=== PATIENT | male | born 1965 | race Caucasian/White ===

== ENCOUNTER 2025-01-04 11:09 | Emergency (ER) | payer SELFPAY ==
--- OUTSIDE RECORDS SUMMARY | 2024-12-23 13:00 | XMS_ITS | Encounter Summary ---
Author Organization [facility] tem Address [facility] [place]-[id number] [address] [place] [address] Care Team Providers Care Cost And Risk Analysis Manager Name Role Phone Miki Maradiaga COAL CHEMIST-REGULATORY AFFAIRS STRATEGY SPECIALIST Primary Care Provider + Reason for Visit * Reason Comments Diabetes A1C Gout Flare Up Intermittently; Star andres several weeks ago Encounter Details Date Type Department Care Team (Latest Contact Info) Description 12/23/2024 1:00 PM EDT Office Visit [facility] Internal Medicine - Family Medicine [address] [place] [address] Miki Maradiaga, COAL CHEMIST-REGULATORY AFFAIRS STRATEGY SPECIALIST [address], [address] [place] [address] Essential hypertension (Primary Dx); Prediabetes; Acute idiopathic gout involving toe of left foot; ADD (attention deficit disorder) without hyperactivity Social History Tobacco Use Types Packs/Day Years Used Date Smoking Tobacco: Never Smokeless Tobacco: Never Alcohol Use Standard Drinks/Week Comments Not Currently 0 (1 standard drink = 0.6 oz pur e alcohol) quit 6 yrs ago Social Connection and Isolation Panel [NHANES] A nswer Date Recorded In a typical week, how many times do you talk on the phone with family, friends, or neighbors? Once a week 01/02/2022 How often do you get togethe r with friends or relatives? Once a week 01/02/2022 How often do you attend christian or restorationism serv ices? Never 01/02/2022 Do you belong to any clubs o r organizations such as christian groups, unions, fraternal or athletic groups, or school groups? Patient declined 01/02/2022 How often do you attend meet ings of the clubs or organizations you belong to? Never 01/02/2022 Are you , , di vorced, , never , or living with a partner? 01/02/2022 AUDIT-C Answer Date Recorded Q1: How often do you have a drink containing alc ohol? Never 01/02/2022 Q2: How many drinks containi ng alcohol do you have on a typical day when you are drinking? Patient declined 01/02/2022 Q3: How often do you have si x or more drinks on one occasion? Never 01/02/2022 Overall Financial Resource Strain (CARDIA) Answe r Date Recorded How hard is it for you to pa y for the very basics like food, housing, medical care, and heating? Not very hard 08/12/2024 PHQ-2 Answer Date Recorded Total Score 0 12/23/2024 [facility] Questionnaire Answer Date Recorded Do you feel stress - tense, restless, nervous, or anxious, or unable to sleep at night because your mind is troubled all the time - these days? To some extent 01/02/2022 Exercise Vital Sign Answer Date Recorde d On average, how many days pe r week do you engage in moderate to strenuous exercise (like a brisk walk)? Patient declined On average, how many minutes do you engage in exercise at this level? Patient declined 01/02/2022 PRAPARE - Transportation Answer Date Re corded In the past 12 months, has l ack of transportation kept you from medical appointments or from getting medications? No 10/2024 In the past 12 months, has l ack of transportation kept you from meetings, work, or from getting things needed for daily living? No 08/12/2024 Housing Instability Answer Date Recorde d Are you worried or concerned that in the next two months you may not have stable housing that you own, rent or stay in as a part of a household? No 08/12/2024 Childcare Answer Date Recorded Do problems getting child ca re make it difficult for you to work or study? No 01/02/2022 Employment Answer Date Recorded Do you need help finding a [facility] career center and/or a training program? No 01/02/2022 Hunger Screening Answer Date Recorded Within the past 12 months we worried whether our food would run out before we got money to buy more. Never True 12/23/2024 Within the past 12 months th e food we bought just didn't last and we didn't have money to get more. Never True 12/23/2024 Purpose - Life Answer Date Recorded I have a purpose and direction in my life. Somew hat Agree 01/02/2022 Education Answer Date Recorded What is the highest level of school you have completed or the highest degree you have received? Bachelor's degree (e.g., BA, AB, BS) 01/02/2022 Sex and Gender Information Value Date Recorded Sex Assigned at Not on file Legal Sex Male 8:44 AM EDT Gender Identity Not on file Sexual Orientation Not on file documented as of this encounter Last Filed Vital Signs Vital Sign Reading Time Taken Comments Blood Pressure 120/78 12/23/2024 1:00 PM EDT Pulse 63 12/23/2024 1:00 PM EDT Temperature 37.2 C (98.9 F) 12/23/2024 1:00 PM EDT Respiratory Rate 18 12/23/2024 1:00 PM EDT Oxygen Saturation 99% 12/23/2024 1:00 PM EDT Inhaled Oxygen Concentration - - Weight 138.3 kg (305 lb) 12/23/2024 1:00 PM EDT Height 182.9 cm (6') 12/23/2024 1:00 PM EDT Body Mass Index 41.37 12/23/2024 1:00 PM EDT documented in this encounter Progress Notes * Miki Maradiaga, COAL CHEMIST-REGULATORY AFFAIRS STRATEGY SPECIALIST - 12/23/2024 1:00 PM EDT IM PROGRESS NOTE Patient - Jaime Bejarano Age - 59 y.o. - 1965 ASSESSMENT & PLAN 1. Prediabetes A1c 5.6. Patient down over 20 lb in weight loss in the last 3 months Patient following low carb low sugar diet Congratulated on weight loss and getting A1c down with diet and exercise - POCT Hemoglobin A1c 2. Acute idiopathic gout involving toe of left foot Uric acid elevated on labs 2 months ago. Continues with redness to right great toe Educated patient about new medications and possible side effects - colchicine (COLCRYS) 0.6 mg tablet; Take 1 tablet (0.6 mg total) by mouth in the morning and 1 tablet (0.6 mg total) before bedtime. Do all this for 10 days. Dispense: 20 tablet; Refill: 0 - ibuprofen (MOTRIN) 800 mg tablet; Take 1 tablet (800 mg total) by mouth every 8 (eight) hours as needed for pain for up to 10 days. Dispense: 30 tablet; Refill: 0 3. Essential hypertension (Primary) Well-controlled. Continue home medications 4. ADD (attention deficit disorder) without hyperactivity Well-controlled. Follow up in 3 months Subjective The following portions of the patient's history were reviewed and updated as appropriate: allergies, current medications, past family history, past medical history, past social history, past surgicalhistory and problem list. CARDIOVASCULAR FOLLOW-UP This is a follow up of a pre-existing problem. Blood pressures are not being checked outside the office. The 10-year ASCVD risk score (Luis A MARSH, et al., 2019) is: 8% Values used to calculate the score: Age: 59 years Sex: Male Is Non- : No Diabetic: No Tobacco smoker: No Systolic Blood Pressure: 120 mmHg Is BP treated: Yes HDL Cholesterol: 48 mg/dL Total Cholesterol: 153 mg/dL Patient reports following dosing instructions Physical activity: Home exercise routine includes treadmill. Dietary efforts show fairly healthy diet with limited sugars and fats, consistent carbohydrate, andlow fat/low cholesterol diet. CV symptoms review was negative for rapid or irregular heart rate, palpitations, syncope This patient is maintained on chronic amphetamine regimen for ADHD. The risks vs benefit of this treatment have been discussed with the patient, and regularly reevaluated. The patient is monitored atregular intervals to ensure both compliance with and the effectiveness of the regimen. Patient has signed a controlled substance contract which is reviewed and updated annually. State medication monitoring databases are checked regularly to verify compliance. There have been no issues with suspected abuse or diversion. OARRS/MAPPS was reviewed by Miki Maradiaga, COAL CHEMIST-REGULATORY AFFAIRS STRATEGY SPECIALIST today. There was not any indication of medication diversion, or non-compliance. Review of Systems Constitutional: Negative for activity change, appetite change, chills, diaphoresis, fatigue and fever. HENT: Negative for tinnitus and trouble swallowing. Eyes: Negative for visual disturbance. Respiratory: Negative for cough, chest tightness, shortness of breath and wheezing. Cardiovascular: Negative for chest pain, palpitations and leg swelling. Gastrointestinal: Negative for abdominal pain, diarrhea, nausea and vomiting. Genitourinary: Negative for difficulty urinating. Musculoskeletal: Positive for arthralgias. Skin: Positive for color change (Right great toe). Negative for rash. Neurological: Negative for dizziness, syncope, speech difficulty, weakness, light-headedness, numbness and headaches. Psychiatric/Behavioral: Negative for sleep disturbance. Exam BP 120/78 (BP Site: Left Arm, BP Postition: Sitting, BP CUFF SIZE: L (13-17 inches)) Pulse 63 Temp 37.2 ??C (98.9 ??F) (Oral) Resp 18 Ht 182.9 cm (6') Wt (!) 138.3 kg (305 lb) SpO2 99% BMI 41.37 kg/m?? Physical Exam Vitals and nursing note reviewed. Constitutional: General: He is not in acute distress. Appearance: He is obese. HENT: Head: Normocephalic and atraumatic. Right Ear: External ear normal. Left Ear: External ear normal. Mouth/Throat: Mouth: Mucous membranes are moist. Eyes: Conjunctiva/sclera: Conjunctivae normal. Pupils: Pupils are equal, round, and reactive to light. Cardiovascular: Rate and Rhythm: Normal rate and regular rhythm. Pulses: Normal pulses. Pulmonary: Effort: Pulmonary effort is normal. Breath sounds: Normal breath sounds. Musculoskeletal: General: Tenderness present. Cervical back: Normal range of motion. Right lower leg: No edema. Left lower leg: No edema. Feet: Right foot: Skin integrity: Erythema, warmth and dry skin present. Skin: General: Skin is warm and dry. Neurological: General: No focal deficit present. Mental Status: He is alert. Psychiatric: Mood and Affect: Mood normal. Behavior: Behavior normal. Meds Current Outpatient Medications: amLODIPine (NORVASC) 10 mg tablet, Take 1 tablet (10 mg total) by mouth in the morning., Disp: 90 tablet, Rfl: 1 atenoloL (TENORMIN) 25 mg tablet, Take 1 tablet (25 mg total) by mouth in the morning and 1 tablet (25 mg total) before bedtime., Disp: 180 tablet, Rfl: 1 cariprazine (VRAYLAR) 6 mg capsule, Take 6 mg by mouth in the morning., Disp: 30 capsule, Rfl: 6 cholecalciferol, vitamin D3, (VITAMIN D3) 5,000 units capsule, TAKE 1 CAPSULE BY MOUTH IN THE MORNING, Disp: 90 capsule, Rfl: 2 dextroamphetamine-amphetamine (ADDERALL) 20 mg tablet, One tablet every morning and afternoon, Disp: 60 tablet, Rfl: 0 FLUoxetine (PROzac) 20 mg capsule, Take 1 capsule (20 mg total) by mouth in the morning., Disp: 90 capsule, Rfl: 1 omeprazole (PriLOSEC) 40 mg capsule, Take 1 capsule (40 mg total) by mouth in the morning., Disp: 90 capsule, Rfl: 1 valsartan-hydroCHLOROthiazide (DIOVAN-HCT) 320-12.5 mg per tablet, Take 1 tablet by mouth daily with breakfast., Disp: 90 tablet, Rfl: 1 Lab Results Office Visit on 12/23/2024 Component Date Value Ref Range Status External Poct Hgb A1C 12/23/2024 5.6 4 - 7 % Final Other Testing No results found. No follow-ups on file. I[facility] Gustafson [facility]: [phone] This note is dictated with the use of M*Modal. Please note that this dictation was completed with computer voice recognition software. Quite often unanticipated grammatical, syntax, homophones, and other interpretive errors are inadvertently transcribed by the computer software. Please disregard these errors. Please excuse any errors that have escaped final proofreading. KILLIAN Carson 12/23/24 1330 documented in this encounter Plan of Treatment Upcoming Encounters Date Type Department Care Team (Late st Contact Info) Description 03/18/2025 1:40 PM EST Office Visit [facility] Internal Medicine - Family Medicine [address] [place] [address] Miki Maradiaga, COAL CHEMIST-REGULATORY AFFAIRS STRATEGY SPECIALIST [address], [address] [address] documented as of this encounter Procedures Procedure Name Priority Date/Time Associated Diagnosis Comments POCT HEMOGLOBIN A1C Routine 12/23/2024 1 :11 PM EDT Prediabetes documented in this encounter Results * POCT Hemoglobin A1c (12/23/2024 1:11 PM EDT) External Poct Hgb A1C 5.6 4 - 7 % MANUALLY TRANSCRIBED RESULTS Blood 12/23/2024 1:11 PM EDT Miki Maradiaga COAL CHEMIST-REGULATORY AFFAIRS STRATEGY SPECIALIST POINT OF CARE TEST ORDER MILES Final Result MANUALLY TRANSCRIBED RESULTS documented in this encounter Visit Diagnoses Diagnosis Essential hypertension- Primary Unspecified essential hypertension Prediabetes Other abnormal glucose Acute idiopathic gout involving toe of left foot ADD (attention deficit disorder) without hyperactivity Attention deficit disorder without mention of hyperactivity documented in this encounter Additional Health Concerns Assessment Noted Time PHQ-9 Depression Total Score: 0 12/24/19 1:00 PM EDT A Body Mass Index follow-up plan has been documented for the patient 09/30/2024 11:28 AM EDT documented as of this encounter Care Teams Cost And Risk Analysis Manager Relationship Specialty Start Date End Date Miki Maradiaga, COAL CHEMIST-REGULATORY AFFAIRS STRATEGY SPECIALIST [address] [place] [address] PCP - General Internal Medicine 11/12/24 documented as of this encounter
--- OUTSIDE RECORDS SUMMARY | 2025-01-04 11:26 | XMS_ITS | Encounter Summary ---
Author Organization [employer] [facility] tem Address [facility] [place]-[id number] [address] [place] [address] Care Team Providers Care Faculty Instructor Name Role Phone Miki Maradiaga MACHINE SPREADER-FLOOR FRAMER Primary Care Provider + Encounter Details Date Type Department Care Team (Latest Contact Info) Description 12/23/2024 Travel Social History Tobacco Use Types Packs/Day Years [...] week 01/02/2022 How often do you attend hinduism or yazidi serv ices? Never 01/02/2022 Do you belong to any clubs o r organizations such as hinduism groups, unions, fraternal or athletic groups, or [...] Answer Date Recorded Total Score 0 12/23/2024 [facility]at ional Health - Occupational Stress Questionnaire Answer Date Recorded [...] Recorded Do you need help finding a [facility] career center and/or a training program? No [...] on file documented as of this encounter Plan of Treatment Upcoming Encounters Date Type Department Care Team (Late st Contact Info) Description 03/18/2025 1:40 PM EST Office Visit [facility] Internal Medicine - Family Medicine [address] [place] [address] Miki Maradiaga, MACHINE SPREADER-FLOOR FRAMER [address], [facility] [address] [place] [address] documented as of this encounter Visit Diagnoses Not on filedocumented in this encounter Additional Health Concerns Assessment Noted Time PHQ-9 Depression Total Score: 0 12/24/19 1:00 PM EDT A Body Mass Index follow-up plan has been documented for the patient 09/30/2024 11:28 AM EDT documented as of this encounter Care Teams Faculty Instructor Relationship Specialty Start Date End Date Miki Maradiaga, MACHINE SPREADER-FLOOR FRAMER [address] [place] [address] PCP - General Internal Medicine 11/12/24 documented as of this encounter
--- OUTSIDE RECORDS SUMMARY | 2025-01-04 11:26 | XMS_ITS | Encounter Summary ---
Author Organization [facility] tem Address [facility] [place]-[id number] [address] [place] [address] Care Team Providers Care Fleet Manager/Dispatch Name Role Phone Bincristelajens Miki Davis APRN-STUDIO TECHNICIAN VIDEO OPERATOR Primary Care Provider + Encounter Details Date Type Department Care Team (Late st Contact Info) Description 08/13/2023 [facility] [address] [place] [phone] Grace Roberts CMA Social History Tobacco Use Types Packs/Day Years [...] week 01/02/2022 How often do you attend adventism or oriental orthodox serv ices? Never 01/02/2022 Do you belong to any clubs o r organizations such as adventism groups, unions, fraternal or athletic groups, or [...] food, housing, medical care, and heating? Not hard at all 04/24/2023 PHQ-2 Answer Date Recorded Total Score 14 07/24/2023 [facility] ional [facility] - Occupational Stress [...] medical appointments or from getting medications? No 04/08 In the past 12 months, has l ack of transportation kept you from meetings, work, or from getting things needed for daily living? No 04/24/2023 Housing Instability Answer Date Recorde d Are you worried or concerned that in the next two months you may not have stable housing that you own, rent or stay in as a part of a household? No 04/24/2023 Childcare Answer Date Recorded Do problems getting child ca re make it difficult for you to work or study? No 01/02/2022 Employment Answer Date Recorded Do you need help finding a [facility] career center and/or a training program? No 01/02/2022 Hunger Screening Answer Date Recorded Within the past 12 months we worried whether our food would run out before we got money to buy more. Never True 07/24/2023 Within the past 12 months th e food we bought just didn't last and we didn't have money to get more. Never True 07/24/2023 Purpose - Life Answer Date Recorded I [...] on file documented as of this encounter Miscellaneous Notes * Telephone Encounter - Grace Roberts CMA - 08/13/2023 2:03 PM EDT [facility] to [facility] which mg of generic adderal you wanted pt to be on 20 or 30 mg? * Telephone Encounter - KILLIAN Rivera - 08/13/2023 2:03 PM EDT I ordered 20 mg * Telephone Encounter - Grace Roberts CMA - 08/13/2023 2:03 PM EDT [facility] let [facility] know documented in this encounter Plan of Treatment Upcoming Encounters Date Type Department Care Team (Late st Contact Info) Description 03/18/2025 1:40 PM EST Office Visit [facility] Internal Medicine - Family Medicine [address] [place] [address] Miki Maradiaga, OPTICAL GLASS INSPECTOR-STUDIO TECHNICIAN VIDEO OPERATOR [address], [address] [address] documented as of this encounter Visit Diagnoses Not on filedocumented in this encounter Additional Health Concerns Assessment Noted Time PHQ-9 Depression Total Score: 14 07/23/2 024 1:36 PM EDT A Body Mass Index follow-up plan has been documented for the patient 08/07/2023 4:54 PM EDT documented as of this encounter Care Teams Fleet Manager/Dispatch Relationship Specialty Start Date End Date Miki Maradiaga, OPTICAL GLASS INSPECTOR-STUDIO TECHNICIAN VIDEO OPERATOR [address] [place] [address] PCP - General Internal Medicine 11/12/24 documented as of this encounter
--- OUTSIDE RECORDS SUMMARY | 2025-01-04 11:26 | XMS_ITS | Encounter Summary ---
Author Organization [facility] [employer] tem Address [facility] [place]-[id number] [address] [place] [address] Care Team Providers Care Printer Slotter Operator Name Role Phone Miki Maradiaga PORTFOLIO STRATEGIST-FOUNDRY MANAGER Primary Care Provider + Encounter Details Date Type Department Care Team (Late st Contact Info) Description 02/16/2022 Orders Only [facility] Family Medicine [address] [place] [id number] External, Scanning Provider Social History Tobacco Use Types Packs/Day Years [...] week 01/02/2022 How often do you attend mandaen or anabaptist serv ices? Never 01/02/2022 Do you belong to any clubs o r organizations such as mandaen groups, unions, fraternal or athletic groups, or [...] like food, housing, medical care, and heating? Somewhat hard 01/02/2022 PHQ-2 Answer Date Recorded Total Score 7 01/02/2022 [facility] of Occupat ional Health - Occupational Stress [...] medical appointments or from getting medications? No 12/08 In the past 12 months, has l ack of transportation kept you from meetings, work, or from getting things needed for daily living? No 01/02/2022 Childcare Answer Date Recorded Do problems getting child ca re make it difficult for you to work or study? No 01/02/2022 Employment Answer Date Recorded Do you need help finding a [facility] career center and/or a training program? No 01/02/2022 Purpose - Life Answer Date Recorded I [...] Medicine - Family Medicine [address] [place] [address] Miki Maradiaga, PORTFOLIO STRATEGIST-FOUNDRY MANAGER [address], [facility] [address] [place] [address] documented as of this encounter Procedures Procedure Name Priority Date/Time Associated Diagnosis Comments SPLIT NIGHT SLEEP STUDY Routine 02/16/2022 documented in this encounter Results * Split Night Sleep Study (02/16/2022) us Scanning Provider External SLEEP CENTER ORDERABL ES Final Result MANUALLY TRANSCRIBED RESULTS documented in this encounter Visit Diagnoses Not on filedocumented in this encounter Additional Health Concerns Assessment Noted Time PHQ-9 Depression Total Score: 7 01/03/20 22 10:26 AM EDT A Body Mass Index follow-up plan has been documented for the patient 02/07/2022 1:45 PM EDT documented as of this encounter Care Teams Printer Slotter Operator Relationship Specialty Start Date End Date Miki Maradiaga, PORTFOLIO STRATEGIST-FOUNDRY MANAGER [address] [place] [address] PCP - General Internal Medicine 11/12/24 documented as of this encounter
--- OUTSIDE RECORDS SUMMARY | 2025-01-04 11:26 | XMS_ITS | Encounter Summary ---
Author Organization [facility] [employer] tem Address [facility] [place]-[id number] [address] [place] [address] Care Team Providers Care Cellar Hand Name Role Phone Hiren Miki Davis HOSPITAL EDUCATOR-FIELD KIL[facility] BURNER Primary Care Provider + Reason for Visit * Reason Onset Date Comments Med Refill 01/04/2025 Encounter Details Date Type Department Care Team (Late st Contact Info) Description 01/04/2025 Refill [facility] Internal Medicine - Family Medicine [address] [place] [phone] Juani Sandoval, HOSPITAL EDUCATOR-FIELD KIL[facility] BURNER [address] [place] [address] Essential hypertension; Gastroesophageal reflux disease without esophagitis Social History Tobacco Use Types Packs/Day Years [...] week 01/02/2022 How often do you attend latter-day or worship serv ices? Never 01/02/2022 Do you belong to any clubs o r organizations such as latter-day groups, unions, fraternal or athletic groups, or [...] Answer Date Recorded Total Score 0 12/23/2024 [facility] of Occupat ional Health - Occupational [...] Recorded Do you need help finding a [facility] career center and/or a training program? No [...] Internal Medicine - Family Medicine [address] [place] [address] Miki Maradiaga, HOSPITAL EDUCATOR-FIELD KILN BURNER [address], [address] [address] documented as of this encounter Visit Diagnoses Diagnosis Essential hypertension Unspecified essential hypertension Gastroesophageal reflux disease without esophagitis Esophageal reflux documented in this encounter Additional Health Concerns Assessment Noted Time PHQ-9 Depression Total Score: 0 12/24/19 1:00 PM EDT A Body Mass Index follow-up plan has been documented for the patient 09/30/2024 11:28 AM EDT documented as of this encounter Care Teams Cellar Hand Relationship Specialty Start Date End Date Miki Maradiaga, HOSPITAL EDUCATOR-FIELD KILN BURNER [address] [place] [address] PCP - General Internal Medicine 11/12/24 documented as of this encounter
--- OUTSIDE RECORDS SUMMARY | 2025-01-04 11:26 | XMS_ITS | Encounter Summary ---
Author Organization [facility] tem Address [id number] [address] [place] [address] Care Team Providers Care Talent Buyer Name Role Phone Hiren Miki Davis APRN-HRIS ADMINISTRATOR Primary Care Provider + Reason for Visit * Reason Onset Date Comments Med Refill 09/29/2024 Encounter Details Date Type Department Care Team (Late st Contact Info) Description 09/29/2024 Refill [facility] Internal Medicine - Family Medicine [address] [place] [address] Ivon Mane CMA Social History Tobacco Use Types Packs/Day [...] week 01/02/2022 How often do you attend presybeterian or temple serv ices? Never 01/02/2022 Do you belong to any clubs o r organizations such as presybeterian groups, unions, fraternal or athletic groups, or [...] PHQ-2 Answer Date Recorded Total Score 0 09/30/2024 [facility] - Occupational Stress [...] Recorded Do you need help finding a [facility] career center and/or a training program? No 01/02/2022 Hunger Screening Answer Date Recorded Within the past 12 months we worried whether our food would run out before we got money to buy more. Never True 09/30/2024 Within the past 12 months th e food we bought just didn't last and we didn't have money to get more. Never True 09/30/2024 Purpose - Life Answer Date Recorded I [...] Medicine - Family Medicine [address] [place] [address] Miki Maradiaga, CEILING INSTALLER-HRIS ADMINISTRATOR [address], [address] [address] documented as of this encounter Visit Diagnoses Not on filedocumented in this encounter Additional Health Concerns Assessment Noted Time PHQ-9 Depression Total Score: 0 09/16/19 25 2:30 PM EDT A Body Mass Index follow-up plan has been documented for the patient 09/15/2024 3:22 PM EDT documented as of this encounter Care Teams Talent Buyer Relationship Specialty Start Date End Date Miki Maradiaga, CEILING INSTALLER-HRIS ADMINISTRATOR [address] [place] [address] PCP - General Internal Medicine 11/12/24 documented as of this encounter
--- OUTSIDE RECORDS SUMMARY | 2025-01-04 11:26 | XMS_ITS | Encounter Summary ---
Author Organization [facility] Address [facility] [id number] [address] [place] [address] Care Team Providers Care Medieval English Literature Professor Name Role Phone Binsamantha Miki Davis CIRCUS ROUSTABOUT-NUTRITION PROFESSOR Primary Care Provider + Reason for Visit * Reason Onset Date Comments Med Refill 01/17/2022 Encounter Details Date Type Department Care Team (Late st Contact Info) Description 01/17/2022 Refill [facility] Family Medicine [address] [facility] [place] [address] Juani Sandoval, CIRCUS ROUSTABOUT-NUTRITION PROFESSOR [address] [place] [address] Vitamin D deficiency Social History Tobacco Use Types Packs/Day Years [...] week 01/02/2022 How often do you attend confucianist or faith serv ices? Never 01/02/2022 Do you belong to any clubs o r organizations such as confucianist groups, unions, fraternal or athletic groups, or [...] Answer Date Recorded Total Score 7 01/02/2022 [facility] - Occupational [...] Recorded Do you need help finding a [place]cal career center and/or a training program? No [...] Medicine - Family Medicine [address] [place] [address] Miki Maradiaga, CIRCUS ROUSTABOUT-NUTRITION PROFESSOR [address], [address] [place] [address] documented as of this encounter Visit Diagnoses Diagnosis Vitamin D deficiency documented in this encounter Additional Health Concerns Assessment Noted Time PHQ-9 Depression Total Score: 7 01/03/20 22 10:26 AM EDT A Body Mass Index follow-up plan has been documented for the patient 01/04/2022 5:36 PM EDT documented as of this encounter Care Teams Medieval English Literature Professor Relationship Specialty Start Date End Date Miki Maradiaga, CIRCUS ROUSTABOUT-NUTRITION PROFESSOR [address] [place] [address] PCP - General Internal Medicine 11/12/24 documented as of this encounter
--- OUTSIDE RECORDS SUMMARY | 2025-01-04 11:26 | XMS_ITS | Encounter Summary ---
Author [facility] Address [facility] [id number] [address] [place] [address] Care Team Providers Care Director Of Marketing Google Performance Ads Name Role Phone Hiren Miki Davis APRN-BRAND SALES MANAGER Primary Care Provider + Reason for Visit * Reason Onset Date Comments Med Refill 01/04/2025 Encounter Details Date Type Department Care Team (Late st Contact Info) Description 01/04/2025 Refill [facility] Internal Medicine - Family Medicine [address] [place] [address] Albino Jessica, DO [address] [facility] [place] [address] ADD (attention deficit disorder) without hyperactivity Social [...] week 01/02/2022 How often do you attend uatsdin or baptist serv ices? Never 01/02/2022 Do you belong to any clubs o r organizations such as uatsdin groups, unions, fraternal or athletic groups, or [...] Answer Date Recorded Total Score 0 12/23/2024 [facility] - [...] Recorded Do you need help finding a [facility] career center and/or a training program? 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
--- OUTSIDE RECORDS SUMMARY | 2025-01-04 11:26 | XMS_ITS | Encounter Summary ---
Author Organization [facility] Address [address] [place] [address] Care Team Providers Care Typing Teacher Name Role Phone Juani Sandoval Unavailable [phone] Encounter Details Date Type Department Care Team (Latest Contact Info) Description 10/06/2024 Results [facility] [address] [place] [phone] Cheryl Vieyra, SHYAMM [address] [place], [place] [id number] Sedimentation rate, automated, CBC auto differential, Uric acid, Additional followed-up results: 2 Social History Tobacco Use Types Packs/Day Years Used Date Smoking Tobacco: Never Alcohol Use Standard Drinks/Week Comments Never 0 (1 standard drink = 0.6 oz pur e alcohol) Sex and Gender Information Value Date Recorded Sex Assigned at Not on file Legal Sex Male 8:34 PM EDT Gender Identity Not on file Sexual Orientation Not on file documented as of this encounter Miscellaneous Notes * Result Encounter Note - Cheryl Vieyra DPM - 10/06/2024 2:41 PM EDT Please call and inform Homero that his lab work shows no elevation in his white count, suggesting no infection. There is slight elevation in sed rate, but normal range for CRP ( both marker for inflammation). Uric acid is high. This all suggests gout. I do not think a specific gout medication is needed unless he were to have additional gout attack in the same year, but he can discuss this with his PCP and I will plan to follow up with him as scheduled. documented in this encounter Plan of Treatment Not on file documented as of this encounter Visit Diagnoses Not on filedocumented in this encounter Care Teams Typing Teacher Relationship Specialty Start Date End Date Juani Sandoval CRNP [address] [facility] [place] [address] Primary Care Provider Nurse Practitioner 10/01/24 documented as of this encounter
--- OUTSIDE RECORDS SUMMARY | 2025-01-04 11:26 | XMS_ITS | Encounter Summary ---
Author Organization [facility] tem Address [id number] [address] [place] [address] Care Team Providers Care Esthetician/Skin Therapist Name Role Phone Hiren Miki Davis APRN-WAREHOUSE OPERATIONS MANAGER Primary Care Provider + Encounter Details Date Type Department Care Team (Late st Contact Info) Description 11/17/2024 [facility] [address] [place] [phone] Solis Rahman CMA Social History Tobacco Use Types Packs/Day [...] week 01/02/2022 How often do you attend yazidism or druze serv ices? Never 01/02/2022 Do you belong to any clubs o r organizations such as yazidism groups, unions, fraternal or athletic groups, or [...] Answer Date Recorded Total Score 0 09/30/2024 [facility] - Occupational Stress Questionnaire Answer [...] Recorded Do you need help finding a [facility] career center and/or a training program? [...] encounter Miscellaneous Notes * Telephone Encounter - Solis Rahman CMA - 11/17/2024 2:45 PM EDT Pt called and needs a refill on his prozac. Pharmacy is listed and correct. documented in this encounter Plan of Treatment Upcoming Encounters Date Type Department Care Team (Late st Contact Info) Description 03/18/2025 1:40 PM EST Office Visit [facility] Internal Medicine - Family Medicine [address] [place] [address] Miki Maradiaga, IRONWORKER WIRE FENCE ERECTOR-WAREHOUSE OPERATIONS MANAGER [address], [facility] [address] [place] [address] documented as of this encounter Visit Diagnoses Not on filedocumented in this encounter Additional Health Concerns Assessment Noted Time PHQ-9 Depression Total Score: 0 10/01/19 11:02 AM EDT A Body Mass Index follow-up plan has been documented for the patient 09/30/2024 11:28 AM EDT documented as of this encounter Care Teams Esthetician/Skin Therapist Relationship Specialty Start Date End Date Miki Maradiaga, IRONWORKER WIRE FENCE ERECTOR-WAREHOUSE OPERATIONS MANAGER [address] [place] [address] PCP - General Internal Medicine 11/12/24 documented as of this encounter
--- OUTSIDE RECORDS SUMMARY | 2025-01-04 11:26 | XMS_ITS | Clinical Summary ---
Author Organization [facility] Address [address] [place] [address] Care Team Providers Care Pan Devulcanizer Name Role Phone Juani Sandoval Unavailable [phone] Allergies No known active allergies Medications amLODIPine (Norvasc) 10 MG tablet Take 10 mg by mouth in the morning. 5 Active amphetamine-dex troamphetamine (Adderall) 20 MG tablet One tablet every morning and afternoon 5 Active atenolol (Tenormin) 25 MG tablet Take 25 mg by mouth in the morning and 25 mg in the evening. 5 Active Vraylar 6 MG capsule Take 1 capsule by mouth Daily Active cholecalciferol (Vitamin D-3) 125 MCG (5000 UT) capsule Take by mouth Daily 5 Active FLUoxetine (PROzac) 20 MG capsule Take 20 mg by mouth in the morning. 5 Active omeprazole (PriLOSEC) [address] capsule Take 40 mg by mouth in the morning. 5 Active valsartan-hydro CHLOROthiazide (Diovan-HCT) 320-12.5 MG tablet Take 1 tablet by mouth in the morning. Take with meals. 5 Active Active Problems No known active problems Encounters Date Type Department Care Team Description 10/12/2024 Telephone [facility] [address] [place] [address] Cheryl Vieyra, DPM Advice Only (Cancel follow up appt 7-8-25) 10/08/2024 Travel 10/06/2024 Results Follow-Up [facility] [address] [place] [address] Cheryl Vieyra DPM Sedimentation rate, automated, CBC auto differential, Uric acid, Additional followed-up results: 2 10/06/2024 External Result Encounter [facility] External Department Unsolicited Cheryl Vieyra DPM from Last 3 Months Family History Relation Name Status Comments Father Mother Alive Social History Tobacco Use Types Packs/Day Years Used Date Smoking Tobacco: Never Tobacco Cessation:Counseling Given: Not Answered Alcohol Use Standard Drinks/Week Comments Never 0 (1 standard drink = 0.6 oz pur e alcohol) Sex and Gender Information Value Date Recorded Sex Assigned at Not on file Legal Sex Male 8:34 PM EDT Gender Identity Not on file Sexual Orientation Not on file Last Filed Vital Signs Vital Sign Reading Time Taken Comments Blood Pressure - - Pulse - - Temperature - - Respiratory Rate - - Oxygen Saturation - - Inhaled Oxygen Concentration - - Weight 145 kg (320 lb) 10/01/2024 11:12 AM EDT Height 182.9 cm (6') 10/01/2024 11:12 AM EDT Body Mass Index 43.4 10/01/2024 11:12 AM EDT Plan of Treatment Health Maintenance Due Date Last Done Comments CT Colonography 1963 Colonoscopy 1963 Colorectal Cancer Screening 1965 FIT-DNA 1963 FIT 1963 FOBT 1965 Sigmoidoscopy 1963 Influenza Vaccine (#1) 2024 4, 01/03/2023, 01/21/2022, Additional history exists Procedures Procedure Name Priority Date/Time Associated Diagnosis Comments HEMOGLOBIN A1C Routine 10/06/2024 9:02 AM EDT C-REACTIVE PROTEIN Routine 10/06/2024 9: 02 AM EDT URIC ACID Routine 10/06/2024 9:02 AM EDT CBC WITH AUTO DIFFERENTIAL Routine 10/06/2024 9:02 AM EDT SED RATE BY MODIFIED WESTERGREN Routine 10/06/2024 9:02 AM EDT from Last 3 Months Results * (ABNORMAL) CBC auto differential (10/06/2024 9:02 AM EDT) WHITE BLOOD CELL COUNT, WBC 9.7 4 - 11 x10E9/L [facility] RED BLOOD CELL COUNT, RBC 4.71 4.1 - 5.7 X10E12/L [facility] HEMOGLOBIN 15.5 13 - 17 g/dL [facility] HEMATOCRIT 45.4 39 - 50 % [facility] MEAN CELL VOLUME, MCV 96 80 - 100 fL [facility] MEAN CELL HEMOGLOBIN, MCH 32.8 27 - 34 pg [facility] MEAN CELL HEMOGLOGIN CONCENTRATION, MCHC 34.1 32 - 36 g/dL [facility] RED CELL DISTRIBUTION WIDTH, RDW 13.1 11.5 - 15 % [facility] PLATELET COUNT 228 150 - 450 X10E9/L [facility] MEAN PLATELET VOLUME, MPV 9.6 7 - 12 fL [facility] % NEUTROPHILS 53.2 % [facility] % LYMPHOCYTES 33.7 % [facility] % MONOCYTES 11.3 % [facility] % EOSINOPHILS 1.2 % [facility] % BASOPHILS 0.6 % [facility] ABSOLUTE NEUTROPHIL 5.2 1.5 - 6.6 10*3/uL [facility] ABSOLUTE LYMPHOCYTE 3.3 1.0 - 3.5 10*3/uL [facility] ABSOLUTE MONOCYTE 1.1(H) 0.0 - 0.9 10*3/uL [facility] ABSOLUTE EOSINOPHIL 0.1 0.0 - 0.4 10*3/uL [facility] ABSOLUTE BASOPHIL 0.1 0.0 - 0.2 10*3/uL [facility] DIFFERENTIAL TYPE AUTOMATED DIFFERENTIAL [facility] Comment: PERFORMED AT [facility] [address],[place] [address] 10/06/2024 9:02 AM EDT 10/06/2024 12:47 PM EDT us Cheryl Vieyra DPM LAB BLOOD ORDERABLES Final Result Performing Organization Address [facility] Co de Phone Number [facility] * (ABNORMAL) Sedimentation rate, automated (10/06/2024 9:02 AM EDT) ESR 27(H) 0 - 20 mm/h [facility] Comment: PERFORMED AT [address],[place] [address] 10/06/2024 9:02 AM EDT 10/06/2024 12:47 PM EDT Cheryl Vieyra DPM LAB BLOOD ORDERABLES Final Result Performing Organization Address [facility] de Phone Number [facility] * C-reactive protein (10/06/2024 9:02 AM EDT) C REACTIVE PROTEIN 0.4 <=0.7 mg/dL [facility] Comment: PERFORMED AT [address],[place] [address] Blood 10/06/2024 9:02 AM EDT 10/06/2024 12:47 PM EDT Cheryl Vieyra DPM LAB BLOOD ORDERABLES Final Result Performing Organization Address [facility] de Phone Number [facility] * (ABNORMAL) Uric acid (10/06/2024 9:02 AM EDT) URIC ACID 10.3(H) 2.6 - 7.2 mg/dL [facility] Comment: PERFORMED AT [address],[place] [address] Blood 10/06/2024 9:02 AM EDT 10/06/2024 12:47 PM EDT Cheryl W Vieyra DPM LAB BLOOD ORDERABLES Final Result [facility] * (ABNORMAL) Hemoglobin A1c (10/06/2024 9:02 AM EDT) HEMOGLOBIN A1C 5.8(H) 4.4 - 5.6 % [facility] Comment: ADA Guidelines Result HgbA1c Normal : less than 5.7 % Prediabetes : 5.7 % to 6.4 % Diabetes : > 6.4 % Use with caution in patients with abnormal hemoglobin variants as the half-life of red blood cells and in vivo glycation rates are affected. AVERAGE GLUCOSE 120 mg/dL [facility] Comment: PERFORMED AT [facility] [address] [facility],[place] [address] Blood 10/06/2024 9:02 AM EDT 10/06/2024 12:47 PM EDT us Cheryl Vieyra DPM LAB BLOOD ORDERABLES Final Result Performing Organization Address City/State/[facility] Co de Phone Number [facility] from Last 3 Months Insurance [employer] Care Teams Pan Devulcanizer Relationship Specialty Start Date End Date Juani Sandoval CRNP [address], [place] [phone] Primary Care Provider Nurse Practitioner 10/01/24
--- OUTSIDE RECORDS SUMMARY | 2025-01-04 11:27 | XMS_ITS | Encounter Summary ---
Author Organization [facility] Address [address] [place] [address], [address] [place] [address] Care Team Providers Care Yeast Washer Name Role Phone Gabriel Quinn DO, Charles P Primary Care Provider + Encounter Details Date Type Department Care Team (Late st Contact Info) Description 02/20/2016 PAT Telephone [facility] Pre-Admit Testing [facility] [place] [address] Neelima Coffey RN Social History Tobacco Use Types Packs/Day Years Used Date Smoking Tobacco: Never Alcohol Use Standard Drinks/Week Comments No 0 (1 standard drink = 0.6 oz pur e alcohol) HAS NOT DRANK SINCE 02/05/2015 Sex and Gender Information Value Date Recorded Sex Assigned at Not on file Legal Sex Male 2:00 PM EST Gender Identity Not on file Sexual Orientation Not on file documented as of this encounter Last Filed Vital Signs Vital Sign Reading Time Taken Comments Blood Pressure - - Pulse - - Temperature - - Respiratory Rate - - Oxygen Saturation - - Inhaled Oxygen Concentration - - Weight 117 kg (258 lb) 02/20/2016 11:16 AM EST Height 182.9 cm (6') 02/20/2016 11:16 AM EST Body Mass Index 34.99 02/20/2016 11:16 AM EST documented in this encounter Plan of Treatment Not on file documented as of this encounter Visit Diagnoses Not on filedocumented in this encounter Care Teams Yeast Washer Relationship Specialty Start Date End Date Salo Rios Sr., DO [address] [place] [address] PCP - General 02/15/16 documented as of this encounter
--- OUTSIDE RECORDS SUMMARY | 2025-01-04 11:27 | XMS_ITS | Encounter Summary ---
Author Organization [employer] [facility] tem Address [facility] [place]-[id number] [address] [place] [address] Care Team Providers Care Oracle Hyperion Consultant Name Role Phone Miki Maradiaga Ryan ALEGREN-RISK ENGINEER Primary Care Provider + Encounter Details Date Type Department Care Team (Late st Contact Info) Description 12/25/2021 [facility]phone [facility] [address] [place] [address] [phone] Giana Roman MA Social History Tobacco Use Types Packs/Day Years Used Date Smoking Tobacco: Never Smokeless Tobacco: Never Alcohol Use Standard Drinks/Week Comments Not Currently 0 (1 standard drink = 0.6 oz pur e alcohol) quit 6 yrs ago PHQ-2 Answer Date Recorded Total Score 0 12/06/2021 Childcare Answer Date Recorded Childcare Unknown 09/17/2018 Employment Answer Date Recorded Employment Unknown 09/17/2018 Purpose - Life Answer Date Recorded Purpose and direction in life Unknown Sex and Gender Information Value Date Recorded Sex Assigned at Not on file Legal Sex Male 8:44 AM EDT Gender Identity Not on file Sexual Orientation Not on file COVID-19 Exposure Response Date Recorded In the last month, have you been in contact with someone who was confirmed or suspected to have Coronavirus / COVID-19? No / Unsure 12/06/2021 8:21 AM EDT documented as of this encounter Miscellaneous Notes * Telephone Encounter - Giana Roman MA - 12/25/2021 8:18 AM EDT ----- Message from Jaime Bejarano sent at 12/23/2021 2:31 PM EDT ----- Regarding: Abilify I???ve started to feel a noticeable, positive difference with the low dose of Abilify. Can you consider increasing it a little bit. This is the first thing that???s seemed to make a difference in eons. documented in this encounter Plan of Treatment Upcoming Encounters Date Type Department Care Team (Late st Contact Info) Description 03/18/2025 1:40 PM EST Office Visit [facility] Internal [facility] - Family Medicine [address] [place] [address] Miki Maradiaga, MEDICAL TYPIST-RISK ENGINEER [address], [address] [address] documented as of this encounter Visit Diagnoses Not on filedocumented in this encounter Additional Health Concerns Assessment Noted Time PHQ-9 Depression Total Score: 0 12/07/19 22 2:36 PM EDT A Body Mass Index follow-up plan has been documented for the patient 12/06/2021 5:32 PM EDT documented as of this encounter Care Teams Oracle Hyperion Consultant Relationship Specialty Start Date End Date Miki Maradiaga, MEDICAL TYPIST-RISK ENGINEER [address] [place] [address] PCP - General Internal Medicine 11/12/24 documented as of this encounter
--- OUTSIDE RECORDS SUMMARY | 2025-01-04 11:27 | XMS_ITS | Clinical Summary ---
Author Organization [facility] Address [address] [place] [address], [address] [place] [address] Care Team Providers Care Airline Station Agent Name Role Phone Gabriel Quinn DO, Charles P Primary Care Provider + Allergies No known active allergies Medications valsartan (DIOVAN) 320 MG tablet Take 320 mg by mouth daily Active atenolol (TENORMIN) 50 MG tablet Take 50 mg by mouth daily Active amLODIPine (NORVASC) 10 MG tablet Take 10 mg by mouth daily Active Active Problems Problem Noted Date Diagnosed Date Subluxation of left lens 02/21/2016 Family History Medical History Relation Name Comments Heart Disease Mother ROME CAD-STENT INSE RTED Relation Name Status Comments Father RAFA Maternal Grandfather Maternal Grandmother Mother ROME Alive Paternal Grandfather Paternal Grandmother Sister 1 DENIS Alive Sister 2 OVIDIO Alive Social History Tobacco Use Types Packs/Day [...] Sign Reading Time Taken Comments Blood Pressure 142/80 02/21/2016 2:00 PM EST Pulse 60 02/21/2016 2:00 PM EST Temperature 36.5 C (97.7 F) 02/21/2016 2:00 PM EST Respiratory Rate 16 02/21/2016 2:00 PM EST Oxygen Saturation 98% 02/21/2016 2:00 PM EST Inhaled Oxygen Concentration - - Weight 117 kg (258 lb) 02/21/2016 11:59 AM EST Height 182.9 cm (6') 02/21/2016 11:59 AM EST Body Mass Index 34.99 02/21/2016 11:59 AM EST Plan of Treatment Not on file Care Teams Airline Station Agent Relationship Specialty Start Date End Date Salo Rios Sr., DO [address] [place] [address] PCP - General 02/15/16
--- OUTSIDE RECORDS SUMMARY | 2025-01-04 11:27 | XMS_ITS | Encounter Summary ---
Author Organization [facility] tem Address [id number] [address] [place] [address] Care Team Providers Care Riveter Pneumatic Name Role Phone Binsamantha Miki COLBYLOGISTICS ENGINEERING MANAGER Primary Care Provider + Encounter Details Date Type Department Care Team (Late st Contact Info) Description [facility]/30[facility]2021 [facility] [address] [place] [phone] Traci Albarran CMA Social History Tobacco Use Types Packs/Day Years Used Date Smoking Tobacco: Never Smokeless Tobacco: Never Alcohol Use Standard Drinks/Week Comments Not Currently 0 (1 standard drink = 0.6 oz pur e alcohol) quit 6 yrs ago PHQ-2 Answer Date Recorded Total Score 2 04/27/2021 Childcare Answer Date Recorded Childcare Unknown 09/17/2018 [...] encounter Miscellaneous Notes * Telephone Encounter - Traci Albarran CMA - 05/30/2021 3:23 PM EST Pt stopped in for a BP check today, his BP was 126/86 at rest for 5 minutes on L arm. * Telephone Encounter - KILLIAN Rivera - 05/30/2021 3:23 PM EST Excellent improvement documented in this encounter Plan of Treatment Upcoming Encounters Date Type Department Care Team (Late st Contact Info) Description 03/18/2025 1:40 PM EST Office Visit [facility] Medicine [address] [place] [address] Miki Maradiaga, NATALY-LOGISTICS ENGINEERING MANAGER [address], [facility] [address] [place] [address] documented as of this encounter Visit Diagnoses Not on filedocumented in this encounter Additional Health Concerns Assessment Noted Time PHQ-9 Depression Total Score: 2 04/27/19 1:57 PM EST A Body Mass Index follow-up plan has been documented for the patient 04/27/2021 5:48 PM EST documented as of this encounter Care Teams Riveter Pneumatic Relationship Specialty Start Date End Date Miki Maradiaga, NATALY-KENROY [address] [place] [address] PCP - General Internal Medicine 11/12/24 documented as of this encounter
--- OUTSIDE RECORDS SUMMARY | 2025-01-04 11:27 | XMS_ITS | Encounter Summary ---
Author Organization [facility] tem Address [facility] [id number] [address] [place] [address] Care Team Providers Care Stuffed Casing Tier Name Role Phone Binsamantha Miki Davis APRN-SPEED BELT SANDER Primary Care Provider + Encounter Details Date Type Department Care Team (Late st Contact Info) Description 12/12/2021 [facility] [address] [place] [address] [phone] Giana Roman MA Social History Tobacco Use [...] Telephone Encounter - Giana Roman MA - 12/12/2021 4:13 PM EDT ----- Message from KILLIAN Rivera sent at 12/12/2021 1:12 PM EDT ----- Please inform patient his testosterone levels are low. Would he like a referral to endocrine for referral or wait until our next face to face appointment? * Telephone Encounter - Giana Roman MA - 12/12/2021 4:13 PM EDT Called pt, he wants to think about it, will discuss at next appt or if he wants to do referral sooner, will call us back documented in this encounter Plan of Treatment Upcoming Encounters Date Type Department Care Team (Late st Contact Info) Description 03/18/2025 1:40 PM EST Office Visit [facility] [address] [place] [address] Miki Maradiaga, ESTATE PLANNING PARALEGAL-SPEED BELT SANDER [address], [address] [address] documented as of this encounter Visit Diagnoses Not on filedocumented in this encounter Additional Health Concerns Assessment Noted Time PHQ-9 Depression Total Score: 0 12/07/19 22 2:36 PM EDT A Body Mass Index follow-up plan has been documented for the patient 12/06/2021 5:32 PM EDT documented as of this encounter Care Teams Stuffed Casing Tier Relationship Specialty Start Date End Date Miki Maradiaga, ESTATE PLANNING PARALEGAL-SPEED BELT SANDER [address] [place] [address] PCP - General Internal Medicine 11/12/24 documented as of this encounter
--- OUTSIDE RECORDS SUMMARY | 2025-01-04 11:27 | XMS_ITS | Encounter Summary ---
Author Organization [facility] tem Address [facility] [id number] [address] [place] [address] Care Team Providers Care Assembly Lead Person Name Role Phone Binsamantha Miki Davis INSTRUCTIONAL COACH-MEDICAL PHOTOGRAPHER Primary Care Provider + Reason for Visit * Reason Onset Date Comments Med Refill 04/19/2022 Encounter Details Date Type Department Care Team (Late st Contact Info) Description 04/19/2022 Refill [facility] [address] [facility] [place] [address] Juani Sandoval, INSTRUCTIONAL COACH-MEDICAL PHOTOGRAPHER [address] [place] [address] Essential hypertension Social History Tobacco Use Types Packs/Day Years [...] week 01/02/2022 How often do you attend holiness or gnosticism serv ices? Never 01/02/2022 Do you belong to any clubs o r organizations such as holiness groups, unions, fraternal or athletic groups, or [...] Answer Date Recorded Total Score 7 01/02/2022 [facility] of Occupat ional Health - Occupational Stress [...] - Family Medicine [address] [place] [address] Miki Maradiaga, INSTRUCTIONAL COACH-MEDICAL PHOTOGRAPHER [address], [address] [address] documented as of this encounter Visit Diagnoses Diagnosis Essential hypertension Unspecified essential hypertension documented in this encounter Additional Health Concerns Assessment Noted Time PHQ-9 Depression Total Score: 7 01/03/20 22 10:26 AM EDT A Body Mass Index follow-up plan has been documented for the patient 04/03/2022 5:20 PM EST documented as of this encounter Care Teams Assembly Lead Person Relationship Specialty Start Date End Date Miki Maradiaga, INSTRUCTIONAL COACH-MEDICAL PHOTOGRAPHER [address] [place] [address] PCP - General Internal Medicine 11/12/24 documented as of this encounter
--- OUTSIDE RECORDS SUMMARY | 2025-01-04 11:27 | XMS_ITS | Encounter Summary ---
Author Organization [facility] [employer] [facility] tem Address [facility] [id number] [address] [place] [address] Care Team Providers Care Poiser Balance Name Role Phone Hiren Miki Davis CORE PASTER-VIDEO GAME TECHNICIAN Primary Care Provider + Reason for Visit * Reason Onset Date Comments Med Refill 02/18/2023 Encounter Details Date Type Department Care Team (Late st Contact Info) Description 02/18/2023 Refill [facility] - Family Medicine [address] [place] [phone] Juani Sandoval, CORE PASTER-VIDEO GAME TECHNICIAN [address] [place] [address] Bipolar disorder with severe depression ([facility]) Social History Tobacco Use Types Packs/Day Years [...] week 01/02/2022 How often do you attend taoist or episcopalian serv ices? Never 01/02/2022 Do you belong to any clubs o r organizations such as taoist groups, unions, fraternal or athletic groups, or [...] 01/02/2022 PHQ-2 Answer Date Recorded Total Score 0 02/08/2023 [facility] of Occupat ional Health - Occupational Stress [...] Recorded Do you need help finding a [facility] and/or a training program? No 01/02/2022 Hunger Screening Answer Date Recorded Within the past 12 months we worried whether our food would run out before we got money to buy more. Never True 02/08/2023 Within the past 12 months th e food we bought just didn't last and we didn't have money to get more. Never True 02/08/2023 Purpose - Life Answer Date Recorded I [...] encounter Miscellaneous Notes * Telephone Encounter - KILLIAN Rivera - 02/18/2023 1:45 PM EST From: Jaime Bejarano To: Office of KILLIAN Yo Sent: 02/18/2023 1:45 PM EST Subject: Medication Renewal Request Refills have been requested for the following medications: Other - Vraylar 1.5 Preferred pharmacy: [id number] - [place], [place] - [address] Delivery method: Pickup documented in this encounter Plan of Treatment Upcoming Encounters Date Type Department Care Team (Late st Contact Info) Description 03/18/2025 1:40 PM EST Office Visit [facility] - Family Medicine [address] [place] [address] Miki Maradiaga APRN-CNP [address], [address] [address] documented as of this encounter Visit Diagnoses Diagnosis Bipolar disorder with severe depression (CMS-HCC) documented in this encounter Additional Health Concerns Assessment Noted Time PHQ-9 Depression Total Score: 0 02/09/20 23 10:26 AM EDT A Body Mass Index follow-up plan has been documented for the patient 01/22/2023 3:15 PM EDT documented as of this encounter Care Teams Poiser Balance Relationship Specialty Start Date End Date Miki Maradiaga APRN-CNP [address] [place] [address] PCP - General Internal Medicine 11/12/24 documented as of this encounter
--- OUTSIDE RECORDS SUMMARY | 2025-01-04 11:27 | XMS_ITS | Encounter Summary ---
Author Organization [facility] tem Address [facility] [id number] [address] [place] [address] Care Team Providers Care Production Planning Supervisor Name Role Phone Hiren Miki Davis BOAT CARPENTER MECHANIC-FLIGHT STEWARD Primary Care Provider + Reason for Visit * Reason Onset Date Comments Med Refill 09/24/2024 Encounter Details Date Type Department Care Team (Late st Contact Info) Description 09/24/2024 Refill [facility] - Family Medicine [address] [place] [phone] Juani Sandoval, BOAT CARPENTER MECHANIC-FLIGHT STEWARD [address] [place] [address] Abscess Social History Tobacco Use Types Packs/Day Years [...] week 01/02/2022 How often do you attend shinto or latter-day serv ices? Never 01/02/2022 Do you belong to any clubs o r organizations such as shinto groups, unions, fraternal or athletic groups, or [...] PHQ-2 Answer Date Recorded Total Score 0 09/15/2024 [facility] of Occupat ional Health - Occupational [...] got money to buy more. Never True 09/15/2024 Within the past 12 months th e food we bought just didn't last and we didn't have money to get more. Never True 09/15/2024 Purpose - Life Answer Date Recorded I [...] Medicine - Family Medicine [address] [place] [address] Miki Maradiaga, BOAT CARPENTER MECHANIC-FLIGHT STEWARD [address], [address] [address] documented as of this encounter Visit Diagnoses Diagnosis Abscess Cellulitis and abscess of unspecified site documented in this encounter Additional Health Concerns Assessment Noted Time PHQ-9 Depression Total Score: 0 09/16/19 25 2:30 PM EDT A Body Mass Index follow-up plan has been documented for the patient 09/15/2024 3:22 PM EDT documented as of this encounter Care Teams Production Planning Supervisor Relationship Specialty Start Date End Date Miki Maradiaga, BOAT CARPENTER MECHANIC-FLIGHT STEWARD [address] [place] [address] PCP - General Internal Medicine 11/12/24 documented as of this encounter
--- OUTSIDE RECORDS SUMMARY | 2025-01-04 11:27 | XMS_ITS | Clinical Summary ---
Author Organization [facility] tem Address [facility] [id number] [address] [place] [address] Care Team Providers Care Manufacturing Production Manager Name Role Phone Cliff MaradiagaYoon INGRAM-KILN CHARGER Primary Care Provider + Allergies No known active allergies Medications cholecalciferol, vitamin D3, (VITAMIN D3) 5,000 units capsuleIndication s:Vitamin D deficiency TAKE 1 CAPSULE BY MOUTH IN THE MORNING 90 capsule 2 5 Active amLODIPine (NORVASC) 10 mg tabletIndications :Essential hypertension Take 1 tablet (10 mg total) by mouth in the morning. 90 tablet 1 5 Active atenoloL (TENORMIN) 25 mg tabletIndications :Essential hypertension Take 1 tablet (25 mg total) by mouth in the morning and 1 tablet (25 mg total) before bedtime. 180 tablet 1 5 Active omeprazole (PriLOSEC) 40 mg capsuleIndication s:Gastroesophagea l reflux disease without esophagitis Take 1 capsule (40 mg total) by mouth in the morning. 90 capsule 1 5 Active cariprazine (VRAYLAR) 6 mg capsuleIndication s:Bipolar disorder with severe depression (CMS-HCC) Take 6 mg by mouth in the morning. 30 capsule 6 5 Active valsartan-hydroCH LOROthiazide (DIOVAN-HCT) 320-12.5 mg per tabletIndications :Essential hypertension Take 1 tablet by mouth daily with breakfast. 90 tablet 1 5 Active FLUoxetine (PROzac) 20 mg capsuleIndication s:Anxiety and depression Take 1 capsule (20 mg total) by mouth in the morning. 90 capsule 1 5 Active dextroamphetamine -amphetamine (ADDERALL) 20 mg tabletIndications :ADD (attention deficit disorder) without hyperactivity One tablet every morning and afternoon 60 tablet 5 Active colchicine (COLCRYS) 0.6 mg tabletIndications :Acute idiopathic gout involving toe of left foot Take 1 tablet (0.6 mg total) by mouth in the morning and 1 tablet (0.6 mg total) before bedtime. Do all this for 10 days. 20 tablet 5 01/03/20 25 ibuprofen (MOTRIN) 800 mg tabletIndications :Acute idiopathic gout involving toe of left foot Take 1 tablet (800 mg total) by mouth every 8 (eight) hours as needed for pain for up to 10 days. 30 tablet 5 01/03/20 25 Active Problems Problem Noted Date Diagnosed Date Adult ADHD 06/04/2024 Subluxation of left lens 02/21/2016 Encounters Date Type Department Care Team Description 01/04/2025 Refill [facility] [address] [place] [address] Juani Sandoval, DRAWER IN DOBBY LOOM-KILN CHARGER Essential hypertension; Gastroesophageal reflux disease without esophagitis 01/04/2025 Refill [facility] - Family [facility] [address] [place] [address] Albino Jessica, DO ADD (attention deficit disorder) without hyperactivity 12/23/2024 1:00 PM EDT Office Visit [facility] Family [facility] [address] [place] [address] Miki Maradiaga, DRAWER IN DOBBY LOOM-KILN CHARGER Essential hypertension (Primary Dx); Prediabetes; Acute idiopathic gout involving toe of left foot; ADD (attention deficit disorder) without hyperactivity 12/23/2024 Travel 11/30/2024 Refill [facility] [address] [place] [address] Tiffani Chan CMA ADD (attention deficit disorder) without hyperactivity 11/18/2024 Orders Only [facility] - Family Medicine [address] [place] [address] Araceli Fernandez, NATALY-KENROY Anxiety and depression 11/17/2024 Telephone [facility] - Family Medicine [address] [place] [address] Solis Rahman CMA 11/12/2024 Travel 11/12/2024 Telephone [facility] Family [facility] [address] [facility] [place] [address] Scout Hodgson, MECHANISM ASSEMBLER 10/29/2024 Refill [facility] - Family Medicine [address] [facility] [place] [address] Tiffani Chan, JOSE MIGUEL ADD (attention deficit disorder) without hyperactivity 10/06/2024 Travel from Last 3 Months Immunizations Immunization Administration Dates Next Due Covid-19, Mrna, Lnp-s, Pf, 3 0 Mcg/0.3 Ml Dose, Poncho-sucrose 07/21/2021 Influenza, Injectable, quadr ivalent (PF) 01/03/2023,01/21/2022,04/27/2021,2016 SARS-COV-2 (COVID-19) Vaccin e, Unspecified 07/21/2021 Zoster Vaccine Recombinant 08/24/2021,06/06/2021 Family History Medical History Relation Name Comments Anxiety disorder Mother Hypertension Mother No Known Problems Sister 1 Lupus Sister 2 Relation Name Status Comments Father Mother Alive Sister 1 Alive Sister 2 Alive Social History Tobacco Use Types Packs/Day Years Used Date Smoking Tobacco: Never Smokeless Tobacco: Never Tobacco Cessation:Counseling Given: Not Answered Alcohol Use Standard Drinks/Week Comments Not Currently [...] week 01/02/2022 How often do you attend jew or methodist serv ices? Never 01/02/2022 Do you belong to any clubs o r organizations such as jew groups, unions, fraternal or athletic groups, or [...] Answer Date Recorded Total Score 0 12/23/2024 [facility] of Occupat ional Health - [...] Recorded Do you need help finding a [facility] career center and/or a training program? No [...] Mass Index 41.37 12/23/2024 1:00 PM EDT Plan of Treatment Upcoming Encounters Date Type Department Care Team (Late st Contact Info) Description 03/18/2025 1:40 PM EST Office Visit [facility] - Family Medicine [address] [place] [phone] Miki Maradiaga, DRAWER IN DOBBY LOOM-KILN CHARGER [address], [address] [place] [address] Health Maintenance Due Date Last Done Comments DTaP,Tdap and Td Vaccines (1 - Tdap) 12/04/1982 Colonoscopy 12/04/2008 Influenza Vaccine 12/07/2024 03/25/2024, , 01/03/2023, Additional history exists Adult BMI Follow Up Plan 09/30/2025 09/30/2024 Adult BMI Screening 12/23/2025 12/23/2024 Depression Screening 12/23/2025 12/23/2024 Tobacco Screening 12/23/2025 12/23/2024 Zoster (Shingles) Vaccine Completed 08/24/2021, 04/2021 COVID-19 Vaccine Completed 02/21/2024, 09/2022, 01/05/2022, Additional history exists Medical Devices Not on file Procedures Procedure Name Priority Date/Time Associated Diagnosis Comments POCT HEMOGLOBIN A1C Routine 12/23/2024 1 :11 PM EDT Prediabetes ERYTHROCYTE SEDIMENTATION RATE (ESR) Routine 10/06/2024 9:02 AM EDT Cellulitis of right toe 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) Gout, unspecified HEMOGLOBIN A1C Routine 10/06/2024 9:02 AM EDT Cellulitis of right toe 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) Gout, unspecified C-REACTIVE PROTEIN Routine 10/06/2024 9: 02 AM EDT Cellulitis of right toe 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) Gout, unspecified CBC WITH AUTO DIFFERENTIAL Routine 10/06/2024 9:02 AM EDT Cellulitis of right toe 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) Gout, unspecified URIC ACID Routine 10/06/2024 9:02 AM EDT Cellulitis of right toe 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) Gout, unspecified from Last 3 Months Results * POCT Hemoglobin A1c (12/23/2024 1:11 PM EDT) [facility] External Poct Hgb A1C 5.6 4 - 7 % MANUALLY TRANSCRIBED RESULTS Blood 12/23/2024 1:11 PM EDT Miki Maradiaga DRAWER IN DOBBY LOOM-KILN CHARGER POINT OF CARE TEST ORDER MILES Final Result MANUALLY TRANSCRIBED RESULTS * (ABNORMAL) Erythrocyte Sedimentation Rate (ESR) (10/06/2024 9:02 AM EDT) [facility] ESR, Erythrocyte Sedimentation Rate 27(H) 0 - 20 mm/h 10/06/2024 1:13 PM EDT [facility] Blood Venous blood / Unknown Venipuncture / Unknown 10/06/2024 9:02 AM EDT 10/06/2024 9:02 AM EDT Cheryl Vieyra DPM LAB BLOOD ORDERABLES Final Result [facility] [address] [place] [address], [place] [phone] * (ABNORMAL) CBC auto differential (10/06/2024 9:02 AM EDT) [facility] WBC 9.7 4 - 11 x10E9/L 10/06/2024 1:30 PM EDT [facility] RBC Count 4.71 4.1 - 5.7 X10E12/L 10/06/2024 1:30 PM EDT [facility] Hemoglobin 15.5 13 - 17 g/dL 10/06/2024 1:30 PM EDT [facility] Hematocrit 45.4 39 - 50 % 10/06/2024 1:30 PM EDT [facility] MCV 96 80 - 100 fL 10/06/2024 1:30 PM EDT [facility] MCH 32.8 27 - 34 pg 10/06/2024 1:30 PM EDT [facility] MCHC 34.1 32 - 36 g/dL 10/06/2024 1:30 PM EDT [facility] RDW 13.1 11.5 - 15 % 10/06/2024 1:30 PM EDT [facility] Platelet Count 228 150 - 450 X10E9/L 10/06/2024 1:30 PM EDT [facility] MPV 9.6 7 - 12 fL 10/06/2024 1:30 PM EDT [facility] Neutrophils % 53.2 % 10/06/2024 1:30 PM EDT [facility] Lymphocytes % 33.7 % 10/06/2024 1:30 PM EDT [facility] Monocytes % 11.3 % 10/06/2024 1:30 PM EDT [facility] Eosinophils % 1.2 % 10/06/2024 1:30 PM EDT [facility] Basophils % 0.6 % 10/06/2024 1:30 PM EDT [facility] Neutrophils Absolute (A) 5.2 1.5 - 6.6 10*3/uL 10/06/2024 1:30 PM EDT [facility] Lymphocytes Absolute 3.3 1.0 - 3.5 10*3/uL 10/06/2024 1:30 PM EDT [facility] Monocytes Absolute 1.1(H) 0.0 - 0.9 10*3/uL 10/06/2024 1:30 PM EDT [facility] Eosinophils Absolute 0.1 0.0 - 0.4 10*3/uL 10/06/2024 1:30 PM EDT [facility] Basophils Absolute 0.1 0.0 - 0.2 10*3/uL 10/06/2024 1:30 PM EDT [facility] Differential Type AUTOMATED DIFFERENTIAL 10/06/2024 1:30 PM EDT [facility] Blood Venous blood / Unknown Venipuncture / Unknown 10/06/2024 9:02 AM EDT 10/06/2024 9:02 AM EDT Cheryl Vieyra DPM LAB BLOOD ORDERABLES Final Result Performing Organization Address City/[facility]/ZIP Co de Phone Number [facility] [address] [place] [address], [place] [phone] * C-reactive protein (10/06/2024 9:02 AM EDT) C REACTIVE PROTEIN 0.4 <=0.7 mg/dL 10/06/2024 2:03 PM EDT [facility] Blood Venous blood / Unknown Venipuncture / Unknown 10/06/2024 9:02 AM EDT 10/06/2024 9:02 AM EDT Cheryl Vieyra DPM LAB BLOOD ORDERABLES Final Result Performing Organization Address City/[facility]/ZIP Co de Phone Number [facility] [address] [place] [address], [place] [phone] * (ABNORMAL) Uric acid (10/06/2024 9:02 AM EDT) [facility] Signature URIC ACID 10.3(H) 2.6 - 7.2 mg/dL 10/06/2024 2:03 PM EDT [facility] Blood Venous blood / Unknown Venipuncture / Unknown 10/06/2024 9:02 AM EDT 10/06/2024 9:02 AM EDT Cheryl Vieyra DPM LAB BLOOD ORDERABLES Final Result Performing Organization Address City/[facility]/ZIP Co de Phone Number [facility] [address] [place] [address], [place] [phone] * (ABNORMAL) Hemoglobin A1c (10/06/2024 9:02 AM EDT) HEMOGLOBIN A1C 5.8(H) 4.4 - 5.6 % 10/06/2024 2:14 PM EDT [facility] Comment: ADA Guidelines Result HgbA1c Normal : less than 5.7 % Prediabetes : 5.7 % to 6.4 % Diabetes : > 6.4 % Use with caution in patients with abnormal hemoglobin variants as the half-life of red blood cells and in vivo glycation rates are affected. EST. AVERAGE GLUCOSE 120 mg/dL 10/06/2024 2:14 PM EDT [facility] Blood Venous blood / Unknown Venipuncture / Unknown 10/06/2024 9:02 AM EDT 10/06/2024 9:02 AM EDT us Cheryl Vieyra DPM LAB BLOOD ORDERABLES Final Result [facility] [address] [place] [address], from Last 3 Months Insurance [employer] Care Teams Manufacturing Production Manager Relationship Specialty Start Date End Date Miki Maradiaga, DRAWER IN DOBBY LOOM-KILN CHARGER [address] [place] [address] PCP - General Internal Medicine 11/12/24
--- OUTSIDE RECORDS SUMMARY | 2025-01-04 11:27 | XMS_ITS | Encounter Summary ---
Author Organization [facility] tem Address [id number] [address] [place] [address] Care Team Providers Care Grips Name Role Phone Miki Maradiaga Ryan ALEGREN-CASH APPLICATIONS MANAGER Primary Care Provider + Encounter Details Date Type Department Care Team (Late st Contact Info) Description 07/30/2022 Orders Only [facility] Internal Medicine - Family Medicine [address] [place] [id number] External, Scanning Provider Social History Tobacco Use [...] week 01/02/2022 How often do you attend yazdanism or restorationist serv ices? Never 01/02/2022 Do you belong to any clubs o r organizations such as yazdanism groups, unions, fraternal or athletic groups, or [...] Answer Date Recorded Total Score 7 01/02/2022 [facility] - Occupational [...] Recorded Do you need help finding a [facility] career center and/or a training program? [...] Medicine - Family Medicine [address] [place] [address] Miki Maradiaga, [employer] ARCHITECT-CASH APPLICATIONS MANAGER [address] [place] [address] documented as of this encounter Procedures Procedure Name Priority Date/Time Associated Diagnosis Comments HOME SLEEP STUDY Routine 07/30/2022 documented in this encounter Results * Home sleep study (07/30/2022) us Scanning Provider External SLEEP CENTER ORDERABL [...] documented as of this encounter Care Teams Grips Relationship Specialty Start Date End Date Miki Maradiaga, [employer] ARCHITECT-CASH APPLICATIONS MANAGER [address] [place] [address] PCP - General Internal Medicine 11/12/24 documented as of this encounter
--- OUTSIDE RECORDS SUMMARY | 2025-01-04 11:27 | XMS_ITS | Encounter Summary ---
Author Organization [facility] Address [address] [place] [address], [address] [place] [address] Care Team Providers Care Erosion Control Specialist Name Role Phone Gabriel Qunin DO, Charles P Primary Care Provider + Encounter Details Date Type Department Care Team (Late st Contact Info) Description 02/22/2016 FollowUp Telephone Encounter [facility] General Surgery [address] [place] [address] Elina Correia RN Social History Tobacco Use Types Packs/Day [...] as of this encounter Plan of Treatment Not on file documented as of this encounter Visit Diagnoses Not on filedocumented in this encounter Care Teams Erosion Control Specialist Relationship Specialty Start Date End Date Salo Rios Sr., DO [address] [place] [address] PCP - General 02/15/16 documented as of this encounter
[2025-01-04 11:34] VITALS: BP 159/101; PULSE 88; TEMP 36.9; O2SAT 97; BMI 41.4
--- NOTE | 2025-01-04 11:54 | ED.GENADUL1 ---
HPI HPI - General Adult General Chief complaint: Animal Bite Stated complaint: [place] BITE 12/28/2024; R HAND SWELLING Time Seen by Provider: 01/04/25 11:41 Mode of arrival: walk-in History of Present Illness HPI narrative: Patient is a 59-year-old male that presents to the emergency department with complaints of cat bite to the right dorsum of his hand a week ago on 12/28/2024. Patient states that it was initially red and swollen and he did get it evaluated at an urgent care on , 12/31/2024 and was started on a 10-day course of Augmentin. He presents today because he was told if the redness/swelling did not improve to present to the emergency department. He has had a small pocket of swelling develop around the dorsum of the MCP joint of the third digit. Since the bite he denies any fever, night sweats, or chills. He states the redness and swelling has not increased. Related Data Home Medications ?Medication ?Instructions ?Recorded ?Confirmed amlodipine 10 mg tablet mg 01/04/25 amoxicillin 875 mg-potassium tab 01/04/25 clavulanate 125 mg tablet atenolol 25 mg tablet mg 01/04/25 cariprazine 6 mg capsule (Vraylar) mg 01/04/25 cholecalciferol (vitamin D3) 125 01/04/25 mcg (5,000 unit) capsule dextroamphetamine-amphetamine 20 01/04/25 mg tablet fluoxetine 20 mg capsule mg 01/04/25 ibuprofen 800 mg tablet mg 01/04/25 omeprazole 40 mg capsule,delayed mg 01/04/25 release valsartan 320 tab 01/04/25 mg-hydrochlorothiazide 12.5 mg tablet Allergies Allergy/AdvReac Type Severity Reaction Status Date / Time No Known Drug Allergies Allergy Verified 01/04/25 11:40 Opioid HPI Opioid Management Most Recent Opioid Data: Last Pain Scale 3 Today, 11:52 Review of Systems ROS Status of ROS 10 or more systems reviewed and unremarkable except as noted in history and below PFSH PFSH Social History Little interest or pleasure in doing things: not at all Feeling down, depressed, or hopeless: not at all Exam Narrative Exam Narrative: General: No distress, age-appropriate Skin: Warm, dry, no pallor. Right hand?erythema to the dorsum of the hand worse around the third MCP joint, there is a fluctuant pocket of swelling in this area with a small area of mild induration and erythema surrounding this. There are multiple puncture wounds around this area as well that have scabs. Head: Normocephalic, atraumatic. Neck: Supple, non-tender. Eye: Pupils are equal, round and EOMI. No scleral icterus. Ears, Nose, Mouth, and Throat: No nasal mucosal hypertrophy. Oral mucosa is moist, no posterior oropharynx erythema, uvula is mid-line Cardiovascular: Regular Rate and Rhythm without murmur, gallop or rub. Respiratory: No accessory muscle use or respiratory distress. Lungs are clear to auscultation, no wheezing, rales or rhonchi Chest Wall: no tenderness Back: No midline thoracic or lumbar vertebral tenderness. Musculoskeletal: Full ROM of all extremities, except patient cannot make a full fist with the right hand, he can actively flex and extend all of his fingers and thumb on this hand but extension is somewhat reduced on the third digit as it is the most swollen. 2+ radial pulse palpated. Less than 2-second capillary refill to all fingers and thumb of the right hand. Sensation intact distally to all fingers and thumb. No tenderness with palpation around the affected area. Neurological: A&O x4. No cranial nerve dysfunction observed. No truncal ataxia. Moves all extremities. Sensation intact. Psychiatric: Cooperative and interactive. Normal mood and affect. Constitutional Vital Signs, click to edit/add: Last Vital Signs Temp 98.4 F 01/04/25 11:34 Pulse 88 01/04/25 11:34 Resp 14 01/04/25 11:34 BP 159/101 H 01/04/25 11:34 Pulse Ox 97 01/04/25 11:34 O2 Del Method Room Air 01/04/25 11:34 Documenting provider has reviewed patient's vital signs: yes Course Vital Signs Vital signs: Vital Signs Temperature 98.4 F 01/04/25 11:34 Pulse Rate 88 01/04/25 11:34 Respiratory Rate 14 01/04/25 11:34 Blood Pressure 159/101 H 01/04/25 11:34 Pulse Oximetry 97 01/04/25 11:34 Oxygen Delivery Method Room Air 01/04/25 11:34 Temperature 98.4 F 01/04/25 11:34 Pulse Rate 88 01/04/25 11:34 Respiratory Rate 14 01/04/25 11:34 Blood Pressure 159/101 H 01/04/25 11:34 Pulse Oximetry 97 01/04/25 11:34 Oxygen Delivery Method Room Air 01/04/25 11:34 Medical Decision Making MDM Narrative Medical decision making narrative: This is a 59-year-old male that presented to the emergency department 7 days after a cat bite to the dorsum of the right hand around the third MCP joint. He was evaluated at urgent care on 12/31/24 and was given a 10-day course of Augmentin and told to follow-up in the ER if there was no improvement. He states that the redness and swelling has not changed but he did develop a pocket of fluid on the dorsum of his hand. He denies any fever, night sweats, or chills at home. On arrival patient is in no distress, vitals are stable, temp is afebrile at 98.4. 97% O2 saturations on room air. There is a small area of erythema and swelling surrounding the dorsum of the right hand around the MCP joint. He does have some reduced range of motion in flexion as he is unable to make a tight fist, the third finger can actively extend but this is slightly limited secondary to swelling. There is a small 1 x 1 cm fluctuant area on the dorsum of his hand. Incision and drainage was performed at bedside by myself. Small amount of purulent fluid expressed, mostly serosanguineous. Patient tolerated procedure well. The wound was dressed and dressing changes and wound instructions were given. Patient was neurovascularly intact after the procedure and patient states that his extension of his third digit slightly improved and some of his pain relieved. I recommended finishing the antibiotics and following up with his PCP in 2 to 3 days. We did discuss return precautions that if he developed a fever, night sweats, chills, or the redness/pain started to increase or any new or worsening symptoms developed. Patient voiced understanding and was discharged with close PCP follow-up Differential Diagnosis Differential Diagnosis: Abscess, septic arthritis Discharge Plan Discharge Chief Complaint: Animal Bite Clinical Impression: Bite by animal Patient Disposition: Home, Self-Care Time of Disposition Decision: 12:18 Condition: Good Mode of Transportation: Private Vehicle Prescriptions / Home Meds: No Action ibuprofen 800 mg tablet atenolol 25 mg tablet omeprazole 40 mg capsule,delayed release(DR/EC) amlodipine 10 mg tablet dextroamphetamine-amphetamine 20 mg tablet fluoxetine 20 mg capsule cholecalciferol (vitamin D3) 125 mcg (5,000 unit) capsule amoxicillin-pot clavulanate 875-125 mg tablet valsartan-hydrochlorothiazide 320-12.5 mg tablet Vraylar 6 mg capsule Print Language: Polish Instructions: Incision and Drainage (ED) Additional Instructions: Change dressing 1-2 times daily. Gently wash area daily with regular soap and water. Finish antibiotics. Call today for follow-up with your primary care provider in 2-3 days to evaluate the area. If you develop a fever, night sweats, chills, or the redness/pain start increasing return to the emergency department. If you develop any new or worsening symptoms also return to the emergency department for reevaluation. Referrals: Physician,Non-Staff, MD [Primary Care Provider] - 1 week Referral Note: Follow-up with your primary care physician in 2-3 days to evaluate your wounds. Discharge Date/Time: 01/04/25 12:33 Procedures ED ID Incision & Drainage I&D Type: abcess Site: hand Side (if applicable): right Sedation/analgesia: none Technique: incised with #11 blade Amount of fluid (mL): 2 Irrigation: No Packing used: none
== END 2025-01-04 12:33 | disposition home or self-care (01) ==
PROVIDERS: Emergency Provider Student in an Organized Health Care Education/Training Program
DX: S61.451A Open bite of right hand, initial encounter (principal); L02.511 Cutaneous abscess of right hand; W55.01XA Bitten by cat, initial encounter
CPT/HCPCS: 10060; 80048; 99282

== ENCOUNTER 2025-01-05 15:58 | Emergency (ER) | payer OTHER, SELFPAY ==
[2025-01-05 16:03] VITALS: BP 160/97; PULSE 79; TEMP 36.8; O2SAT 98; BMI 41.4
--- NOTE | 2025-01-05 16:55 | ED.GENADUL1 ---
Documented by User: MAGO Agrawal 01/06/25 09:58 HPI HPI - General Adult General Chief complaint: Wound/Laceration Stated complaint: wound drain Time Seen by Provider: 01/05/25 16:55 Source: patient Mode of arrival: walk-in Limitations: no limitations History of Present Illness HPI narrative: Patient is a 59-year-old male that returns to the emergency department, was just seen yesterday for same condition, with complaints of cat bite to the right dorsum of his hand a week ago on 12/28/2024. Patient states that it was initially red and swollen and he did get it evaluated at an urgent care on , 12/31/2024 and was started on a 10-day course of Augmentin. He has had a small pocket of swelling develop around the dorsum of the MCP joint of the third digit. A bedside I&D was done yesterday in the ED and patient states the hole closed already and the fluid filled back up. Since the bite he denies any fever, night sweats, or chills. He states the redness and swelling has not increased. He tried to follow up with his PCP but they told him that they do not see cat bites so he returned here today for further plan. Related Data Home Medications ?Medication ?Instructions ?Recorded ?Confirmed amlodipine 10 mg tablet mg 01/04/25 amoxicillin 875 mg-potassium tab 01/04/25 clavulanate 125 mg tablet atenolol 25 mg tablet mg 01/04/25 cariprazine 6 mg capsule (Vraylar) mg 01/04/25 cholecalciferol (vitamin D3) 125 01/04/25 mcg (5,000 unit) capsule dextroamphetamine-amphetamine 20 01/04/25 mg tablet fluoxetine 20 mg capsule mg 01/04/25 ibuprofen 800 mg tablet mg 01/04/25 omeprazole 40 mg capsule,delayed mg 01/04/25 release valsartan 320 tab 01/04/25 mg-hydrochlorothiazide 12.5 mg tablet Allergies Allergy/AdvReac Type Severity Reaction Status Date / Time No Known Drug Allergies Allergy Verified 01/04/25 11:40 Opioid HPI Opioid Management Most Recent Opioid Data: Last Pain Scale 4 01/05/25, 16:03 Review of Systems ROS Status of ROS 10 or more systems reviewed and unremarkable except as noted in history and below PFSH PFSH Social History Little interest or pleasure in doing things: not at all Feeling down, depressed, or hopeless: not at all Exam Narrative Exam Narrative: General: In no distress, age appropriate Skin: Warm, dry, no pallor. Right hand?erythema to the dorsum of the hand worse around the third MCP joint, there is a fluctuant pocket of swelling in this area with a small area of mild induration and erythema surrounding this. There are multiple puncture wounds around this area as well that have scabs. Head: Normocephalic, atraumatic. Neck: Supple, non-tender. Eye: Pupils are equal, round and EOMI. No scleral icterus. Ears, Nose, Mouth, and Throat: No nasal mucosal hypertrophy. Oral mucosa is moist, no posterior oropharynx erythema, uvula is mid-line Cardiovascular: Regular Rate and Rhythm without murmur, gallop or rub. Respiratory: No accessory muscle use or respiratory distress. Lungs are clear to auscultation, no wheezing, rales or rhonchi Chest Wall: no tenderness Back: No midline thoracic or lumbar vertebral tenderness. Musculoskeletal: Full ROM of all extremities, except patient cannot make a full fist with the right hand, he can actively flex and extend all of his fingers and thumb on this hand but extension is somewhat reduced on the third digit as it is the most swollen. 2+ radial pulse palpated. Less than 2-second capillary refill to all fingers and thumb of the right hand. Sensation intact distally to all fingers and thumb. No tenderness with palpation around the affected area. Neurological: A&O x4. No cranial nerve dysfunction observed. No truncal ataxia. Moves all extremities. Sensation intact. Psychiatric: Cooperative and interactive. Normal mood and affect. Constitutional Vital Signs, click to edit/add: Last Vital Signs Temp 98.2 F 01/05/25 16:03 Pulse 79 01/05/25 16:03 Resp 20 01/05/25 16:03 BP 160/97 H 01/05/25 16:03 Pulse Ox 98 01/05/25 16:03 O2 Del Method Room Air 01/05/25 16:03 Course Vital Signs Vital signs: Vital Signs Temperature 98.2 F 01/05/25 16:03 Pulse Rate 79 01/05/25 16:03 Respiratory Rate 20 01/05/25 16:03 Blood Pressure 160/97 H 01/05/25 16:03 Pulse Oximetry 98 01/05/25 16:03 Oxygen Delivery Method Room Air 01/05/25 16:03 Temperature 98.2 F 01/05/25 16:03 Pulse Rate 79 01/05/25 16:03 Respiratory Rate 20 01/05/25 16:03 Blood Pressure 160/97 H 01/05/25 16:03 Pulse Oximetry 98 01/05/25 16:03 Oxygen Delivery Method Room Air 01/05/25 16:03 Medical Decision Making MDM Narrative Medical decision making narrative: This is a 59-year-old male that initially presented to the emergency department yesterday that was 7 days after a cat bite to the dorsum of the right hand around the third MCP joint. He was evaluated at urgent care on 12/31/24 and was given a 10-day course of Augmentin and told to follow-up in the ER if there was no improvement. He states that the redness and swelling has not changed but he did develop a pocket of fluid on the dorsum of his hand. He denies any fever, night sweats, or chills at home. A bedside I&D was done yesterday, but the wound has closed and fluid has reaccumulated. On arrival patient is in no distress, vitals are stable, temp is afebrile at 98.2. 98.2% O2 saturations on room air. There is a small area of erythema and swelling surrounding the dorsum of the right hand around the MCP joint. He does have some reduced range of motion in flexion as he is unable to make a tight fist, the third finger can actively extend but this is slightly limited secondary to swelling. There is a small 1 x 1 cm fluctuant area on the dorsum of his hand. Appearance is similar to yesterdays exam. I did page Dr Jameson drawer in stitch bonding machine for Ortho and spoke with him about patient's case. He agrees that patient will need a formal I&D in the operating room as he has failed outpatient therapy. Plan will be to see patient in the office tomorrow and surgery at [facility] with possible stay overnight for IV antibiotics. He did want the patient to continue the Augmentin. Patient has 3 days left of the medication. I did discuss plan with patient and he is agreeable. Dr Jameson's office will contact patient for further appointment and surgery details. I did give patient the Ortho offices information should he not hear from them, he was instructed to call. Patient was discharged from the ED with plan in placed to continue antibiotics and close follow up with Orthopedics. ATTENDING ADDENDUM: Dr. Ingram Patient seen and evaluated at bedside with midlevel provider. Agree with plan. Differential Diagnosis Differential Diagnosis: Hand abscess from cat bite Discharge Plan Discharge Chief Complaint: Wound/Laceration Clinical Impression: Bite by animal Patient Disposition: Home, Self-Care Time of Disposition Decision: 17:09 Condition: Good Mode of Transportation: Private Vehicle Prescriptions / Home Meds: No Action ibuprofen 800 mg tablet atenolol 25 mg tablet omeprazole 40 mg capsule,delayed release(DR/EC) amlodipine 10 mg tablet dextroamphetamine-amphetamine 20 mg tablet fluoxetine 20 mg capsule cholecalciferol (vitamin D3) 125 mcg (5,000 unit) capsule amoxicillin-pot clavulanate 875-125 mg tablet valsartan-hydrochlorothiazide 320-12.5 mg tablet Vraylar 6 mg capsule Print Language: Citizen Of [place] Additional Instructions: Follow-up with Dr. Jameson, with Ortho, in office tomorrow. His office will contact you for an appointment time. Plan will be for an incision and drainage of your right hand on at [facility]. If there is a change his office will notify you. His office will also give you further details about surgery. Continue on the Augmentin antibiotic. Referrals: Ronnell Jameson DO [Physician, Orthopedics] - As soon as possible Referral Note: Plan to follow-up tomorrow in office, his office will contact you for appointment time. Physician,Non-Staff, MD [Primary Care Provider] - 1 week Discharge Date/Time: 01/05/25 17:35 Documented by User: Bryan Ingram DO 01/05/25 18:56 HPI HPI - General Adult General Chief complaint: Wound/Laceration Stated complaint: wound drain Time Seen by Provider: 01/05/25 16:55 Related Data Home Medications ?Medication ?Instructions ?Recorded ?Confirmed amlodipine 10 mg tablet mg 01/04/25 amoxicillin 875 mg-potassium tab 01/04/25 clavulanate 125 mg tablet atenolol 25 mg tablet mg 01/04/25 cariprazine 6 mg capsule (Vraylar) mg 01/04/25 cholecalciferol (vitamin D3) 125 01/04/25 mcg (5,000 unit) capsule dextroamphetamine-amphetamine 20 01/04/25 mg tablet fluoxetine 20 mg capsule mg 01/04/25 ibuprofen 800 mg tablet mg 01/04/25 omeprazole 40 mg capsule,delayed mg 01/04/25 release valsartan 320 tab 01/04/25 mg-hydrochlorothiazide 12.5 mg tablet Allergies Allergy/AdvReac Type Severity Reaction Status Date / Time No Known Drug Allergies Allergy Verified 01/04/25 11:40 Opioid HPI Opioid Management Most Recent Opioid Data: Last Pain Scale 4 01/05/25, 16:03 PFSH PFSH Social History Little interest or pleasure in doing things: not at all Feeling down, depressed, or hopeless: not at all Exam Constitutional Vital Signs, click to edit/add: Last Vital Signs Temp 98.2 F 01/05/25 16:03 Pulse 79 01/05/25 16:03 Resp 20 01/05/25 16:03 BP 160/97 H 01/05/25 16:03 Pulse Ox 98 01/05/25 16:03 O2 Del Method Room Air 01/05/25 16:03 Course Vital Signs Vital signs: Vital Signs Temperature 98.2 F 01/05/25 16:03 Pulse Rate 79 01/05/25 16:03 Respiratory Rate 20 01/05/25 16:03 Blood Pressure 160/97 H 01/05/25 16:03 Pulse Oximetry 98 01/05/25 16:03 Oxygen Delivery Method Room Air 01/05/25 16:03 Temperature 98.2 F 01/05/25 16:03 Pulse Rate 79 01/05/25 16:03 Respiratory Rate 20 01/05/25 16:03 Blood Pressure 160/97 H 01/05/25 16:03 Pulse Oximetry 98 01/05/25 16:03 Oxygen Delivery Method Room Air 01/05/25 16:03 Medical Decision Making MDM Narrative Medical decision making narrative: ATTENDING ADDENDUM: Dr. Ingram Patient seen and evaluated at bedside with midlevel provider. Agree with plan. Discharge Plan Discharge Chief Complaint: Wound/Laceration Clinical Impression: Bite by animal Patient Disposition: Home, Self-Care Time of Disposition Decision: 17:09 Condition: Good Mode of Transportation: Private Vehicle Prescriptions / Home Meds: No Action ibuprofen 800 mg tablet atenolol 25 mg tablet omeprazole 40 mg capsule,delayed release(DR/EC) amlodipine 10 mg tablet dextroamphetamine-amphetamine 20 mg tablet fluoxetine 20 mg capsule cholecalciferol (vitamin D3) 125 mcg (5,000 unit) capsule amoxicillin-pot clavulanate 875-125 mg tablet valsartan-hydrochlorothiazide 320-12.5 mg tablet Vraylar 6 mg capsule Print Language: Citizen Of [place] Additional Instructions: Follow-up with Dr. Jameson, with Ortho, in office tomorrow. His office will contact you for an appointment time. Plan will be for an incision and drainage of your right hand on at [facility]. If there is a change his office will notify you. His office will also give you further details about surgery. Continue on the Augmentin antibiotic. Referrals: Ronnell Jameson DO [Physician, Orthopedics] - As soon as possible Referral Note: Plan to follow-up tomorrow in office, his office will contact you for appointment time. Physician,Non-Staff, MD [Primary Care Provider] - 1 week Discharge Date/Time: 01/05/25 17:35
== END 2025-01-05 17:35 | disposition home or self-care (01) ==
PROVIDERS: Emergency Provider Student in an Organized Health Care Education/Training Program; PCP Nurse Practitioner Family
DX: S61.451A Open bite of right hand, initial encounter (principal); W55.01XA Bitten by cat, initial encounter
CPT/HCPCS: 99282